=== PATIENT | male | born 1940 | race African-American/Black ===

== ENCOUNTER 2025-05-05 10:28 | Emergency (ER) | payer MEDICARE ==
[~2025-05-05] VITALS: Ht 172.7 cm; Wt 76.0 kg
[2025-05-05 10:38] VITALS: TEMP 98.6; O2SAT 94
[2025-05-05] MEDS: ACETAMINOPHEN 325MG TABLET PO ONE (11:10)
[2025-05-05 13:23] VITALS: BP 161/93; PULSE 71; RESP 15; O2SAT 97
== END 2025-05-05 13:37 | disposition home or self-care (01) ==
LOC: ER 10:28
DX: S09.90XA Unspecified injury of head, initial encounter (principal); M25.511 Pain in right shoulder; M25.561 Pain in right knee; M25.562 Pain in left knee; E78.00 Pure hypercholesterolemia, unspecified; I10 Essential (primary) hypertension; G20.A1 Parkinson's disease without dyskinesia, without mention of fluctuations; W19.XXXA Unspecified fall, initial encounter; Y93.89 Activity, other specified; Y92.89 Other specified places as the place of occurrence of the external cause; Y99.8 Other external cause status
CPT/HCPCS: 73030; 73560; 99284; A4606